=== PATIENT | male | born 1935 | race Caucasian/White ===

== ENCOUNTER 2017-01-07 19:58 | Emergency (ER) | payer OTHER ==
[2017-01-07 20:11] VITALS: BP 124/50
--- NOTE | 2017-01-07 20:48 | ERNOTE ---
Upper Extremity HPI - General Extremities Pain Location: hand: left - pain and swelling Time Seen by Provider: 01/07/17 20:37 Source: patient Exam Limitations: no limitations - Immun/Allergies/Home Medications Immunizations: IMMUNIZATION HX Immunizations Up to Date Yes History of Influenza Vaccine Yes Hx Pneumococcal Vaccination Yes Allergies/Adverse Reactions: Allergies Allergy/AdvReac Type Severity Reaction Status Date / Time No Known Allergies Allergy Unverified 01/07/17 20:11 Home Medications: HOME MEDICATIONS Aspirin [Low Dose Aspirin EC] 81 mg PO DAILY 01/07/17 [Last Taken Unknown] Cephalexin [Keflex] 500 mg PO QID #40 capsule 01/07/17 [Last Taken Unknown] Lisinopril 5 mg PO DAILY 01/07/17 [Last Taken Unknown] Metoprolol Succinate 12.5 mg PO DAILY 01/07/17 [Last Taken Unknown] - History of Present Illness Narrative: pt hit his left hand on angle iron while trying to tighten a nut and the wrench slipped on Thursday at work. It was sore but today it became red and more swollen and now difficult to move his index finger Occurred: other - Thursday Location of Incident: home Severity: moderate Method of Injury: Reports: direct blow Loss of Consciousness: Reports: no loss of consciousness Modifying Factors - (Worsens): Reports: movement Associated Symptoms: Denies: tingling, weakness Review of Systems - Review of Systems Constitutional: Absent: recent illness EYE: Present: no symptoms reported ENT: Present: no symptoms reported Respiratory: Present: no symptoms reported Cardiology: Present: no symptoms reported Gastrointestinal/Abdominal: Present: no symptoms reported Genitourinary: Present: no symptoms reported Musculoskeletal: Present: See HPI Skin: Present: See HPI, change in color Neurological: Absent: numbness, tingling Endocrine: Present: no symptoms reported Hematologic/Lymphatic: Present: no symptoms reported - Patient's Past Medical History Patient History - Medical: No pertinent hx Patient History - Cardiac/Respiratory: Hypertension Patient History - Cancer: Leukemia Patient History - Surgical Procedures: Hernia Repair Patient History - Other: None - Social History Living Situations: spouse Abuse History: No History of abuse Psych History: No pertinent hx Smoking Status: Former smoker Have you smoked in the past 12 months: No Do you dip or chew tobacco: No Alcohol Use: rarely Drug Use: none - Immunizations Immunizations Up to Date: Yes Hx Pneumococcal Vaccination: Yes History of Influenza Vaccine: Yes Physical Exam - Physical Exam General Appearance: Present: wd/wn, alert, no apparent distress Head Exam: Present: normal inspection, no evidence of injury Respiratory: Present: no respiratory distress, no accessory muscle use Extremity Exam: Present: normal except - - left 2nd MCP joint is swollen and erythematous. Reduced ROM and some swelling at all joints of his left index finger. Tenderness only immediately around the MCP. Neurological Exam: Present: alert, oriented, normal mood/affect, no motor/ sensory deficits Skin Exam: Present: other - erythema around 2nd MCP of left hand, no lymphadenitis Lymphatic Exam: Present: no adenopathy ED Progress - Results and Orders Patient's Lab Results:: I have reviewed the patient's lab results. Results and Orders: Laboratory Tests 01/07/17 20:55 WBC 59.5 H Hgb 9.6 L Hct 30.8 L Plt Count 203 - Vital Signs Patient's Vital Signs:: I have reviewed the patient's vital signs. Vital Signs: Vital Signs 01/07/17 20:05 Temperature 37.9 C H Pulse Rate 68 Respiratory 14 Rate Blood Pressure 124/50 O2 Sat by Pulse 97 Oximetry - X-Ray X-Ray #1 X-Ray: hand Interpretation: Interp. by me X-ray Comments: no fractures, degenerative changes noted. - Progress/Reassessment Chief Complaint: Hand Injury/Pain Departure Clinical Impression: Cellulitis and abscess of hand Contusion Qualifiers: Encounter type: initial encounter Contusion area: hand Laterality: left Qualified Code(s): S60.222A - Contusion of left hand, initial encounter - Departure Disposition: Home self-care Condition: Good Instructions: Cellulitis, Adult, [id number] Referrals: Dante Cunningham MD [Primary Care Provider] - Prescriptions: Cephalexin [Keflex] 500 mg PO QID #40 capsule
[2017-01-07 20:55] LABS: Hematocrit 30.8 % (42.0-52.0); Hemoglobin 9.6 gm/dL (13.5-18.0); Mean Cell Volume 102.3 fl (78-100); Mean Corpuscular Hemoglobin 31.9 pg (27-31); Mean Corpuscular Hgb Conc 31.2 g/dl (32-36); Mean Platelet Volume 9.5 fl (6.0-9.5); Platelet Count 203 K/mm3 (150-450); Red Blood Count 3.01 M/mm3 (4.7-6.0); Red Cell Distribution Width 13.6 % (11.5-14.0); White Blood Count 59.5 K/mm3 (4.0-10.5)
[2017-01-07 20:58] LABS: Total Cells Counted 100
[2017-01-07 21:07] LABS: Band 1 % (0-2.0); Lymphocyte 81 % (20-51); Monocyte 3 % (0-9); Neutrophil 15 % (42-75); Neutrophil # 8.9 K/mm3 (1.3-6.0)
[2017-01-07 21:08] LABS: Dohle Bodies 1+
[2017-01-07 21:11] LABS: Giant Platelets Trace; Platelet Estimate Normal (NORMAL); Poikilocytosis 1+
[2017-01-07] MEDS ORDERED: CEPHALEXIN MONOHYDRATE 250 MG CAPSULE PO ONE (21:29)
[2017-01-07] MEDS ORDERED: KETOROLAC TROMETHAMINE 60 MG/2 ML VIAL IM ONE (21:33)
[2017-01-07] MEDS ORDERED: KETOROLAC TROMETHAMINE 30 MG/ML VIAL ONE (21:34)
[2017-01-07] MEDS ORDERED: CEPHALEXIN MONOHYDRATE 250 MG CAPSULE ONE (21:34)
== END 2017-01-07 21:45 | disposition home or self-care (01) ==
LOC: ER 19:58
DX: L03.114 Cellulitis of left upper limb (principal); L02.512 Cutaneous abscess of left hand; S60.222A Contusion of left hand, initial encounter; X58.XXXA Exposure to other specified factors, initial encounter; Y93.89 Activity, other specified; Y92.69 Other specified industrial and construction area as the place of occurrence of the external cause; Y99.0 Civilian activity done for income or pay; I10 Essential (primary) hypertension; C95.91 Leukemia, unspecified, in remission